=== PATIENT | male | born 1975 | race Caucasian/White ===

== ENCOUNTER 2018-11-23 14:51 | Emergency (ER) | payer BC ==
--- OUTSIDE RECORDS SUMMARY | 2018-11-23 15:16 | XMS REPORT | Summary of Care ---
:1975 Author Organization [facility] Address [address] [facility] [place] [address] Care Team Providers Name Role Phone Harley Cedeno MD Primary Care Provider Reason for Referral Refer to Department Only (Routine) Status Reason Specialty Diagnoses / Referred By Referred To Procedures Contact Contact Pending Review Physical Therapy Diagnoses Neck stiffness Low back pain without sciatica, unspecified back pain laterality, unspecified chronicity Surya Ho MD [address] [place] [address] Reason for Visit Reason Comments New Patient Neck stiffness and low back pain. No known injury. Patient has had neck stiffness and low back pain since 11-07-18. Encounter Details Date Type Department Care Team Description 11/12/2018 Office Visit [facility] - Surya Ho MD Neck stiffness (Primary Dx); [address] Low back pain without sciatica, unspecified back pain laterality, unspecified chronicity [address] [place] [address] [phone] Allergies Active Allergy Reactions Severity Noted Date Comments Salicylic Acid Hives 11/12/2018 Nsaids Hives, Swelling 11/12/2018 Angio edema Soy Allergy Hives 11/12/2018 Wheat Bran Hives 11/12/2018 documented as of this encounter (statuses as of 11/12/2018) Medications Medication Sig Dispensed Refills Start Date End Date Status Insulin Glulisine by Injection 0 Active (APIDRA) 100 UNIT/ML route. Injection Solution Insulin Glargine Inject beneath 0 Active (BASAGLAR KWIKPEN) 100 the skin. UNIT/ML Subcutaneous Solution Pen-injector MONTELUKAST SODIUM PO Take by mouth. 0 Active HYDRALAZINE HCL PO Take by mouth. 0 Active Tizanidine HCl Take by mouth. 0 Active (ZANAFLEX) 2 MG Oral Cap documented as of this encounter (statuses as of 11/12/2018) Active Problems No known active problemsdocumented as of this encounter (statuses as of 2018) Social History Tobacco Use Types Packs/Day Years Used Date Former Smoker Smokeless Tobacco: Never Used Sex Assigned at Date Recorded Not on file Job Start Date Occupation Industry Not on file Not on file Not on file Travel History Travel Start Travel End No recent travel history available. documented as of this encounter Last Filed Vital Signs Vital Sign Reading Time Taken Comments Blood Pressure 159/86 11/12/2018 2:52 PM EDT Pulse 88 11/12/2018 2:52 PM EDT Temperature - - Respiratory Rate - - Oxygen Saturation - - Inhaled Oxygen Concentration - - Weight 139.3 kg (307 lb) 11/12/2018 2:52 PM EDT Height 188 cm (6' 2") 11/12/2018 2:52 PM EDT Body Mass Index 39.42 11/12/2018 2:52 PM EDT documented in this encounter Progress Notes Surya Ho MD - 11/12/2018 2:45 PM EDT Name: Arsalan Locke : 1975 Date of Service: 11/12/2018 Referring Provider: Zeb Primary Care Provider: Harley Cedeno Chief Complaint Patient presents with New Patient Neck stiffness and low back pain. No known injury. Patient has had neck stiffness and low back pain since 11-07-18. Past Medical History: Diagnosis Date Left hand fracture Lower leg fracture Past Surgical History: Procedure Laterality Date MA LEG/ANKLE SURGERY PROC UNLISTED Current Outpatient Medications Medication Sig HYDRALAZINE HCL PO Take by mouth. Insulin Glargine (BASAGLAR KWIKPEN) 100 UNIT/ML Subcutaneous Solution Pen -injector Inject beneath the skin. Insulin Glulisine (APIDRA) 100 UNIT/ML Injection Solution by Injection route. MONTELUKAST SODIUM PO Take by mouth. Tizanidine HCl (ZANAFLEX) 2 MG Oral Cap Take by mouth. No current facility-administered medications for this visit. Allergies Allergen Reactions Pelzer & Callus Remover [Salicylic Acid] Hives Nsaids Hives and Swelling Angio edema Soy Allergy Hives Wheat Bran Hives Social History Socioeconomic History Marital status: Spouse name: Not on file Number of children: Not on file Years of education: Not on file Highest education level: Not on file Occupational History Not on file Social Needs Financial resource strain: Not on file Food insecurity: Worry: Not on file Inability: Not on file Transportation needs: Medical: Not on file Non-medical: Not on file Tobacco Use Smoking status: Former Smoker Smokeless tobacco: Never Used Substance and Sexual Activity Alcohol use: Not on file Drug use: Not on file Sexual activity: Not on file Lifestyle Physical activity: Days per week: Not on file Minutes per session: Not on file Stress: Not on file Relationships Social connections: Talks on phone: Not on file Gets together: Not on file Attends pentecostal service: Not on file Active member of club or organization: Not on file Attends meetings of clubs or organizations: Not on file Relationship status: Not on file Intimate partner violence: Fear of current or ex partner: Not on file Emotionally abused: Not on file Physically abused: Not on file Forced sexual activity: Not on file Other Topics Concern Not on file Social History Narrative Not on file History reviewed. No pertinent family history. ROS: Review of systems intake completed by clinical staff. I have reviewed and agree with their documentation. 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 No history of injury. Started spontaneously. Seen at [facility] where he was given medication and referred here. Had a period of low back pain after an injury a couple of years ago for which he had physical therapy. Has not had back pain or neck pain since that time. Has no radicular symptoms. No systemic symptoms. Patient runs and ultra marathons. Last one was early September. Has not been training very muchfor the last few weeks. Cannot take nonsteroidalsgives him hives. Physical exam shows a healthy-appearing man in no acute distress. Alert and oriented. Neck somewhat stiff. Rotation approximately 80% of normal to both sides. Low back nontender. Decreased range of motion. Grossly no focal motor or sensory abnormalities. X-rays of the cervical spine and lumbar spine show minimal spondylitic changes. Impression: New-onset neck and back pain. Etiology unclear at this time. Plan: Symptomatic treatment. If no improvement over the weekend, start physical therapy. Reevaluate in 2 weeks. Impression: ICD-9-CM ICD-10-CM 1. Neck stiffness 723.5 M43.6 XR CERVICAL SPINE 4 OR 5 VIEWS (STANDARD) REFER TO PHYSICAL THERAPY / REHAB 2. Low back pain without sciatica, unspecified back pain laterality, unspecified chronicity 724.2 M54.5 XR LUMBAR SPINE MIN 4 VIEWS (STANDARD) REFER TO PHYSICAL THERAPY / REHAB Author: Surya Ho MD 11/12/2018 15:28 This record contains sections created with voice recognition software. It has been electronically signed. A reasonable attempt at proofreading has been made. Please call with any questions or corrections. documented in this encounter Plan of Treatment Date Type Specialty Care Team Description 11/26/2018 Office Visit Orthopedics Surya Ho MD [address] [place] [address] [phone] Name Type Priority Associated Diagnoses Date/Time XR CERVICAL SPINE 4 OR Imaging Routine Neck stiffness 11/12/2018 3:18 PM 5 VIEWS (STANDARD) EDT XR LUMBAR SPINE MIN 4 Imaging Routine Low back pain without 11/12/2018 3: 19 PM VIEWS (STANDARD) sciatica, unspecified EDT back pain laterality, unspecified chronicity Name Type Priority Associated Diagnoses Order Schedule XR CERVICAL SPINE 4 OR Imaging Routine Neck stiffness Expected: 11/12/2018, 5 VIEWS (STANDARD) Expires: 11/12/2019 XR LUMBAR SPINE MIN 4 Imaging Routine Low back pain without Expected: 11/12, VIEWS (STANDARD) sciatica, unspecified Expires: 11/12/2019 back pain laterality, unspecified chronicity Name Type Priority Associated Diagnoses Order Schedule REFER TO PHYSICAL Referral Routine Neck stiffness Ordered: 11/12/2018 THERAPY / REHAB Low back pain without sciatica, unspecified back pain laterality, unspecified chronicity Health Maintenance Due Date Last Done Comments DEPRESSION SCREENING 1985 HIV SCREENING 1988 DIABETES SCREENING 08/22/1991 LIPID DISORDER SCREENING 08/22/1991 INFLUENZA VACCINE (#1) 2018 HPV IMMUNIZATION SERIES Aged Out No longer eligible based on patient's age to complete this topic MENINGOCOCCAL VACCINE IMM Aged Out No longer eligible based on patient's age to complete this topic PNEUMOCOCCAL 0-64 YRS Aged Out No longer eligible based on patient's age to complete this topic documented as of this encounter Results Not on filedocumented in this encounter Visit Diagnoses Diagnosis Neck stiffness - Primary Torticollis, unspecified Low back pain without sciatica, unspecified back pain laterality, unspecified chronicity documented in this encounter Insurance Payer Benefit Plan / Subscriber ID Effective Dates Phone Address Type Group [employer]MY MURPHY xxxxxxxxxxxx 2017-Present [employer] P[employer] documented as of this encounter
[2018-11-23] MEDS ORDERED: NS 0.9% 1000 ML** 1,000 ML IV ONE (18:25)
--- NOTE | 2018-11-23 18:25 | ED ---
Back Pain - HPI Summary HPI Summary: This pt is a 43 Y/O M presenting to [facility] with a CC of back pain that started 2 weeks ago and has been progressively getting worse and is currently a 9/10 in severity. He states that he got X-Rays from an orthopedic clinic and they were negative. He states that he has decreased ROM and has become SOB. He states that he is currently on Toradol which is not alleviating. He denies any N/V, edema, dysuria, fevers, chills, headaches, and CP. He states that it is usually worse with changes in position and sneezing. He states that he has had alleviation with sitting on a hard surface. He states that he has had decreased sleep since the pain has woke him up after around 90 minutes. He states that after going on steroids his BS has been around the 300s. He states a PMHx of diabetes, urticarial, angioedema, and a back injury from 2 years ago. - History of Current Complaint Chief Complaint: EDBackInjuryPain Stated Complaint: BACK INJURY PER PT Time Seen by Provider: 11/23/18 18:03 Hx Obtained From: Patient Onset/Duration: Sudden Onset, Lasting Weeks - 2, Still Present, Worse Since - onset Onset/Duration: Started Weeks Ago - 2 Timing: Constant, Lasting Weeks - 2 Back Pain Location: Is Discrete @ - Low back Severity Initially: Mild Severity Currently: Severe Pain Intensity: 9 Pain Scale Used: 0-10 Numeric Aggravating Symptom(s): Other - positional changes and sneezing Alleviating Symptom(s): Other - lying on his back, sitting on hard surfaces Associated Signs And Symptoms: Positive: Negative - N/V, edema, dysuria, fevers , chills, headaches, and CP., Other. Negative: Fever, Abdominal Pain Related History: Similar Episode Dx As - 2 years ago when he injured his bk ice skating - Allergies/Home Medications Allergies/Adverse Reactions: Allergies Allergy/AdvReac Type Severity Reaction Status Date / Time NSAIDS (Non-Steroidal Allergy Severe Hives/Diff. Verified 11/23/18 15:08 Anti-Inflamma Breathing/I tching Home Medications: Home Medications BuPROPion XL* [Bupropion XL*] 300 mg PO DAILY 11/23/18 [History Confirmed ] Insulin Glargine,Hum.rec.anlog [Basaglar Kwikpen U-100] 1 unit IM DAILY [History Confirmed 11/23/18] Sildenafil (NF) [Viagra (NF)] 25 mg PO ONCE PRN 11/23/18 [History Confirmed ] hydrOXYzine HCL TAB* [Atarax TAB 50 MG *] 50 mg PO DAILY 11/23/18 [History Confirmed 11/23/18] PMH/Surg Hx/FS Hx/Imm Hx Previously Healthy: Yes Endocrine/Hematology History: Reports: Hx Diabetes - type 1 , Other Endocrine/ Hematological Disorders - Chronic urticaria Cardiovascular History: Reports: Other Cardiovascular Problems/Disorders - angioedema Denies: Hx Hypotension, Hx Hypertension Infectious Disease History: No Infectious Disease History: Denies: Traveled Outside the [place] in Last 30 Days - Family History Known Family History: Positive: Diabetes, Respiratory Disease - asthma - Social History Occupation: Employed Full-time Lives: With Family Alcohol Use: None Hx Substance Use: No Substance Use Type: Reports: None Hx Tobacco Use: No Smoking Status (MU): Never Smoked Tobacco Review of Systems Negative: Fever, Chills Negative: Chest Pain Negative: Abdominal Pain, Vomiting, Nausea Negative: dysuria Positive: Other - Low back pain Negative: Headache All Other Systems Reviewed And Are Negative: Yes Physical Exam - Summary Physical Exam Summary: General: Well-developed, obese male. Moderate discomfort with movement. HEENT: Normocephalic, Atraumatic. Eyes: Conjuctiva normal, PERRL. Ears: TMs within normal limits. Nares: (-) discharge, (-) erythema. Oropharynx: Clear, mucous membranes moist, (-) exudates. Neck: Soft, FROM, (-) lymphadenopathy, (-) thyromegaly, (-) JVD. Cardiovascular: Normal sinus rhythm, (-) murmur. Lungs: Clear to auscultation bilaterally (-) wheezes, (-) rales, (-) rhonchi. Abdomen: Soft, non-tender, non-distended, (-) organomegaly, normal bowel sounds. Back: (-) CVA tenderness, Left lower lumbar paraspinal tenderness to palpation, no spinal tenderness Extremities: No edema. Normal strength bilaterally, normal pulses. Skin: Warm, dry, (-) rash. Neuro: Alert and oriented x3, no focal deficits. Psychiatric: Mood normal, affect normal. Triage Information Reviewed: Yes Vital Signs On Initial Exam: Initial Vitals Temp Pulse Resp BP Pulse Ox 97.9 F 92 18 168/98 98 11/23/18 15:02 11/23/18 15:02 11/23/18 15:02 11/23/18 15:02 11/23/18 15:02 Vital Signs Reviewed: Yes Diagnostics - Vital Signs Vital Signs Temp Pulse Resp BP Pulse Ox 11/23/18 15:02 97.9 F 92 18 168/98 98 - Laboratory Result Diagrams: 11/23/18 18:59 11/23/18 18:59 Lab Statement: Any lab studies that have been ordered have been reviewed, and results considered in the medical decision making process. - CT Lumbar Spine CT CT Interpretation Completed By: Radiologist Summary of CT Findings: Mild multilevel lumbar spondylopathy. ED physician has reveiwed this report. Back Pain Course/Dx - Course Course Of Treatment: This pt is a 43 Y/O M presenting to [facility] with a CC of back pain that started 2 weeks ago and has been progressively getting worse and is currently a 9/10 in severity. He states that he got X-Rays from an orthopedic clinic and they were negative. He states that he has decreased ROM and has become SOB. He states that he is currently on Toradol which is not alleviating. He denies any N/V, edema, dysuria, fevers, chills, headaches, and CP. His PE found that he had moderate distress with movement and left lower lumbar paraspinal tenderness but no spinal tenderness. His lumbar spine CT found that he has Mild multilevel lumbar spondylopathy. He will be discharged home with a Dx of Low bck pain and instructed to follow up with his PCP in 1-3 days and to return to the ED for any new or worsening symptoms. He was also made aware of the following discontinued meds: tramadol 50mg qid, flexeril 10mg tid, and methylprednisolone 4mg dose pack. - Diagnoses Provider Diagnoses: Low back pain Discharge ED - Sign-Out/Discharge Documenting (check all that apply): Patient Departure Patient Received Moderate/Deep Sedation with Procedure: No - Discharge Plan Condition: Stable Disposition: HOME Prescriptions: Diazepam TAB(*) [Valium TAB(*)] 10 mg PO Q8H PRN 5 Days #15 tab NS MDD 3 PRN Reason: severe pain oxyCODONE/Acetamin 5/325 MG* [Percocet 5/325 TAB*] 2 tab PO Q6H PRN #20 tab MDD 8 PRN Reason: severe pain predniSONE TAB* [Deltasone 20 MG TAB*] 60 mg PO DAILY 5 Days #15 tab Patient Education Materials: Back Pain (ED) Forms: *Work Release Referrals: Harley Cedeno MD [Primary Care Provider] - 3 Days Additional Instructions: PLEASE RETURN TO THE EMERGENCY DEPARTMENT FOR ANY NEW OR WORSENING SYMPTOMS. FOLLOW UP WITH YOUR PRIMARY CARE PHYSICIAN IN 1-3 DAYS. Please take the prescribed medications as directed and inform your primary care physician of the discontinuation of the tramadol 50mg qid, flexeril 10mg tid, and methylprednisolone 4mg dose pack. - Billing Disposition and Condition Condition: STABLE Disposition: Home - Attestation Statements Document Initiated by Dejan: Yes Documenting Scribe: Raheel Lu Provider For Whom Dejan is Documenting (Include Credential): Lesley Lambert MD Scribe Attestation: Raheel Kelsey scribed for Lesley Lambert MD on 11/25/18 at 1948. Scribe Documentation Reviewed: Yes Provider Attestation: The documentation as recorded by the Raheel reagan accurately reflects the service I personally performed and the decisions made by , Lesley Lambert MD Status of Scribe Document: Viewed
[2018-11-23] MEDS ORDERED: Diazepam TAB(*) 5 MG PO ONE (18:34)
[2018-11-23] MEDS ORDERED: Morphine 4 MG/ML VIAL (1 ml) 4 MG/ML VIAL IV ONE (18:35)
[2018-11-23 19:08] LABS: ABS Eosinophils 0.1 10^3/ul (0-0.6); ABS Lymphocytes 1.9 10^3/ul (1.0-4.8); ABS Monocytes 0.5 10^3/ul (0-0.8); ABS Neutrophils 5.2 10^3/ul (1.5-7.7); Hematocrit 43 % (42-52); Hemoglobin 14.4 g/dL (14.0-18.0); Lymphocyte % 24.7 %; Mean Corpuscular HGB Conc 34 g/dL (31-36); Mean Corpuscular Hemoglobin 29 pg (27-31); Mean Corpuscular Volume 86 fL (80-94); Mean Platelet Volume 9.6 fL (7.4-10.4); Nucleated Red Blood Cells % 0.1; Platelet Count 199 10^3/uL (150-450); Red Blood Count 4.96 10^6 /uL (4.18-5.48); Red Cell Distribution Width 14 % (10-15); White Blood Count 7.7 10^3/uL (3.5-10.8)
[2018-11-23 19:25] LABS: Albumin 4.1 g/dL (3.2-5.2); Albumin/Globulin Ratio 1.3 (1-3); BUN/Creatinine Ratio 30.9 (8-20); C Reactive Protein 1.86 mg/L (<8.01); Calcium 8.9 mg/dL (8.6-10.3); EGFR African American 124.7 (>60); Globulin 3.2 g/dL (2-4); Potassium 4.2 mmol/L (3.5-5.0); Total Bilirubin 0.5 mg/dL (0.2-1.0); Total Protein 7.3 g/dL (6.4-8.9)
[2018-11-23 20:07] LABS: Urine Appearance Clear; Urine Bilirubin Negative (Negative); Urine Blood Negative (Negative); Urine Color Yellow; Urine Glucose 3+(>=500 mg/dL) (Negative); Urine Ketones Negative (Negative); Urine Nitrite Negative (Negative); Urine Protein Negative (Negative); Urine Specific Gravity 1.029 (1.010-1.030); Urine Urobilinogen Negative (Negative)
[2018-11-23] MEDS ORDERED: predniSONE TAB* 20 MG PO ONE (20:27)
[2018-11-23 20:39] VITALS: BP 147/80
== END 2018-11-23 20:50 | disposition home or self-care (01) ==
LOC: ED 14:51
DX: M54.5 Low back pain (principal); E10.9 Type 1 diabetes mellitus without complications; Z79.4 Long term (current) use of insulin; Z79.899 Other long term (current) drug therapy; Z88.6 Allergy status to analgesic agent
CPT/HCPCS: 36415; 72131; 80053; 81003; 83605; 85025; 86140; 87040; 96361; 96374; 99283; A9270-GY; J2270; J7512